=== PATIENT | female | born 1965 | race Caucasian/White ===

== ENCOUNTER → 2016-11-03 | Outpatient (CLI) | payer BC, OTHER ==
[~2016-11-03] MED LIST: CHOL100027 PO; COEN30CA3 PO; LEVO125T72 PO; ONDA4TAB65 PO; OSTEOMATRIX PO; TAMO20TA9 PO; [UNRECOGNIZED DRUG - CODE] PO; [UNRECOGNIZED DRUG - OTHER] PO; [UNRECOGNIZED DRUG - OTHER] PO
--- NOTE | 2016-11-03 13:13 | MAMMOGRAPHY REPORT ---
BILATERAL DIGITAL DIAGNOSTIC MAMMOGRAM TOMOSYNTHESIS WITH CAD AND TARGETED BILATERAL ULTRASOUND: 11/03 CLINICAL HISTORY: Asymptomatic. Personal history of breast cancer. TECHNIQUE: Bilateral CC and MLO 2-D digital and tomosynthesis images were obtained. Current study wa s also evaluated with a Computer Aided Detection (CAD) system. COMPARISON: Comparison is made to exams dated: 11/01/2015 mammogram, 10/30/2014 mammogram, 10/27/2013 mamm ogram, 04/25/2013 mammogram - [facility], 12/12/2011 mammogram, and 11/21/2011 mammogr am - [facility]. BREAST COMPOSITION: The tissue of both breasts is heterogeneously dense, which may obscure small mas ses. FINDINGS: Linear scar markers overlie the 6:00 posterior aspect and axillary tail of the left breast. There is expected architectural distortion in the far posterior 6:00 axis of the left breast, at th e site of prior lumpectomy. There are a few benign rim calcifications in the left breast. No new freed spicious mass, architectural distortion or cluster of suspicious microcalcifications. There is a circumscribed lobulated 4.3 x 3.7 x 2.8 mm mass in the 11:00 to 12:00 anterior right breas t, for which additional evaluation with ultrasound was performed. No other obvious mass, architectur al distortion or suspicious microcalcifications are identified in the right breast. Targeted ultrasound was performed in the anterior right breast. In the 11:00 axis, 1 cm from the nip ple, there is a subtle circumscribed isoechoic solid-appearing mass measuring 3.6 x 2.7 x 3.4 mm. Th is is thought to correlate with the mammographic mass and could represent an isoechoic fibroadenoma, focal fibrocystic change or fat necrosis. Nevertheless, definitive characterization with tissue samp ling is recommended. Additional sonographic evaluation was performed in the 5:00 to 6:00 axes of the left breast, in the a sanjay of prior lumpectomy given the far posterior location. This region has the sonographic appearance of normal scar tissue. No evidence of a suspicious solid mass. IMPRESSION: ACR BI-RADS CATEGORY 4: SUSPICIOUS, TARGETED ULTRASOUND ACR BI-RADS CATEGORY 4: SUSPICIO US 1. Ultrasound guided core needle biopsy is recommended for a 3.6 mm isoechoic solid-appearing mass i n the 11:00 anterior right breast. 2. Stable mammographic and targeted sonographic evidence of the left breast, without mammographic ev idence of malignancy. 3. Given the personal history of left breast cancer and heterogeneously dense breasts, could conside r additional surveillance with breast MRI. These results and recommendations were discussed with the patient at the time of the exam. She tenta tively scheduled the right breast biopsy prior to leaving our department. Approximately 10% of breast cancers are not detected with mammography. A negative mammographic report should not delay biopsy if a clinically suggestive mass is present. Taisha Montano M.D. ay/:11/03/2016 12:51:59 Sample Grinder: Zara Leon, [facility] letter sent: Abnormal 4/5 BI-RADS Code: ACR BI-RADS Category 4: Suspicious Ultrasound BI-RADS: ACR BI-RADS Category 4: Suspici ous
== END | disposition home or self-care (01) ==
LOC: C.MAMM 10:34
PROVIDERS: ATTEND Internal Medicine Hematology
DX: Z85.3 Personal history of malignant neoplasm of breast (principal); N63 Unspecified lump in breast

== ENCOUNTER → 2016-11-05 | Outpatient (CLI) | payer BC ==
--- NOTE | 2016-11-05 09:44 | Discharge Instructions ---
Discharge Instructions Procedure Procedure Date: Nov 05, 2016. Reason for visit: Right Mass. Discharge Discharge Date: Nov 05, 2016. Discharge Diagnosis: status post breast biopsy Instructions Activity Recommendations: Additional Limitations (see below) Return to School/Work: no limitations Recommended Home Diet: No Limitations Provider Instructions: ACTIVITY RECOMMENDATIONS: * No lifting, pushing, pulling or exercising the affected side for three days. RETURN TO SCHOOL/WORK: * You may return to work/school after the procedure, but do not perform any strenuous activities for 24 to 48 hours. MEDICATIONS: * Tylenol (two 325 mg) every four to six hours if needed for mild pain (if not allergic to Tylenol). DIET: * Resume previous diet. SPECIAL CARE INSTRUCTIONS: * Keep biopsy site dry for 24 hours. May shower after 24 hours, but do not soak (bathe) incision. * May remove Tegaderm (plastic patch) tomorrow AFTER showering. * Leave the steri-strips on for one week. Allow the steri-strips to fall off by themselves. If not off after one week, you may remove them. You may place a Bandaid crosswise over the strips, if desired. * Apply ice 10 minutes on and 10 minutes off as needed. * Wear a bra at bedtime to sleep more comfortably for 2-3 days. * Your referring physician should have the results after approximately 5 to 7 business days. * Call for unusual bleeding, fever, drainage, etc or if you have any questions call during normal business hours or after hours call Dr Mckeon, . FOLLOW UP VISIT: Follow-up with Referring Physician as scheduled. Allergies Coded Allergies: Codeine (Unverified Allergy, SHORTNESS OF BREATH, 01/07/12) Sulfa Drugs (Unverified Allergy, RASH, 01/07/12) Chelsi Mccray Recommendations: Call your doctor if: * Temperature above 101 degrees * Pain not relieved by pain medicine ordered * There is increased drainage or redness from any incision * You have any unanswered questions or concerns. Your Doctors Instructions noted above were prepared by provider Harriet Mckeon. Patient Signature Section: Patient Instructions Signature Page Angelika Pastrana Patient (or Guardian) Signature/Date: I have read and understand the instructions given to me by my caregivers. Caregiver/RN/Doctor Signature/Date: The above-named patient and/or guardian has received patient instructions on this date. + Original Patient Signature Page (only) stays with chart. Please make copy for patient.
--- NOTE | 2016-11-05 13:28 | MAMMOGRAPHY REPORT ---
UNILATERAL RIGHT DIGITAL DIAGNOSTIC MAMMOGRAM TOMOSYNTHESIS: 11/05/2016 CLINICAL HISTORY: Status post ultrasound guided biopsy of the right 11:00 breast mass. TECHNIQUE: Breast tomosynthesis in addition to standard 2D mammography was performed. Postprocedura l right CC and ML 2-D and tomosynthesis images were obtained. COMPARISON: Comparison is made to exams dated: 11/03/2016 mammogram, 11/01/2015 mammogram, 10/30/2014 antione mogram, 10/27/2013 mammogram, and 04/25/2013 mammogram - [facility]. BREAST COMPOSITION: The tissue of the right breast is heterogeneously dense, which may obscure small masses. FINDINGS: A new biopsy marker clip is seen at the site of the biopsied mass in the right 11:00 breas t. The biopsy marker clip is located at the site of the original mammographic mass, indicating good correlation between the biopsied sonographic mass and the mammographic mass. No significant postbiop sy hematoma is seen. IMPRESSION: POST PROCEDURE IMAGING FOR MARKER PLACEMENT New biopsy marker clip status post right breast ultrasound-guided biopsy. Pathology results are pend ing. Approximately 10% of breast cancers are not detected with mammography. A negative mammographic report should not delay biopsy if a clinically suggestive mass is present. Harriet Mckeon M.D. ah/:11/05/2016 10:01:17 Character Impersonator: Zara GARCIA(Harry)(M), [facility] BI-RADS Code: Post Procedure Imaging For Marker Placement
--- NOTE | 2016-11-05 13:28 | MAMMOGRAPHY REPORT ---
ULTRASOUND GUIDED BIOPSY RIGHT BREAST: 11/05/2016 CLINICAL HISTORY: Right 11:00 breast mass. PATIENT CONSENT: The procedure, risks and benefits were discussed with the patient and informed writt en consent was obtained. A timeout was performed immediately prior to the procedure. PROCEDURE DESCRIPTION: With ultrasound guidance, aseptic technique, and lidocaine as the local anesth etic (1% lidocaine to anesthetize the skin and 1% lidocaine with epinephrine to anesthetize the deepe r tissues), the mass of concern in the right 11:00 breast was sampled 3 times with a 14-gauge Achieve biopsy needle. The mass was no longer well seen after the biopsy samples were taken. Immediately th ereafter, with ultrasound guidance, aseptic technique, and lidocaine as the local anesthetic, a metal lic localizer clip was placed at the biopsy site. Direct pressure was applied to the site immediatel y post procedure and hemostasis was achieved. Postprocedure unilateral mammograms were performed to confirm clip placement. The patient was extremely anxious during the procedure and reported some lig htheadedness and nausea during the procedure. After the procedure was completed, she did experience some vomiting. Her symptoms later improved and she no longer had any nausea, vomiting, or lightheade dness when she left the department. She was given wound care instructions. The specimens were sent t o pathology for analysis. COMPARISON: Comparison is made to exams dated: 11/03/2016 mammogram, 11/03/2016 ultrasound, 11/01/2015 m ammogram, 10/30/2014 mammogram, 10/27/2013 mammogram, and 04/25/2013 mammogram - [facility]. IMPRESSION: ULTRASOUND GUIDED BIOPSY Ultrasound-guided core needle biopsy of the right 11:00 breast mass, with clip placement. The patien t will receive pathology results from her referring provider. Harriet Mckeon M.D. /:11/05/2016 09:55:12 Precision Honing Machine Operator: Zara GARCIA(R)(M), [facility]
== END | disposition home or self-care (01) ==
LOC: C.MAMM 09:08
PROVIDERS: ATTEND Internal Medicine Hematology
DX: N63 Unspecified lump in breast (principal); N60.11 Diffuse cystic mastopathy of right breast